=== PATIENT | female | born 1945 | race Caucasian/White ===

== ENCOUNTER 2020-09-19 15:10 | Outpatient (CLI) | payer MEDICARE | END 2020-09-19 15:11 | disposition home or self-care (01) | LOC: CSHULT 15:10 | PROVIDERS: ATTEND Family Medicine | DX: R22.1 Localized swelling, mass and lump, neck (principal) | CPT/HCPCS: 76536 ==

== ENCOUNTER 2021-12-09 07:33 | Outpatient (CLI) | payer MEDICARE | END 2021-12-09 07:34 | disposition home or self-care (01) | LOC: CSHCT 07:33 | PROVIDERS: ATTEND Physician Assistant Medical | DX: K21.9 Gastro-esophageal reflux disease without esophagitis (principal); R11.2 Nausea with vomiting, unspecified; R19.4 Change in bowel habit; R10.32 Left lower quadrant pain; R10.31 Right lower quadrant pain | CPT/HCPCS: 74177; 82565 ==

== ENCOUNTER 2022-12-30 10:44 | Inpatient (IN) | payer MEDICARE ==
[2022-12-30 11:36] LABS: #Basophils 0.1 10x3/uL (0.0-0.2); #Monocytes 0.9 10x3/uL (0.0-1.1); #Neutrophils 4.4 10x3/uL (1.5-8.4); %Basophils 0.9 % (0.0-2.0); %Eosinophils 0.5 % (0.0-6.0); %Lymphocytes 24.1 % (18.0-47.0); %Monocytes 12.4 % (0.0-10.0); %Neutrophils 58.5 % (40.0-75.0); Hemoglobin 12.5 g/dL (12.0-15.5); Mean Corpuscular Hemoglobin 32.1 pg (27.0-33.0); Mean Platelet Volume 9.2 fl (7.4-10.4); Platelet Count 349 10x3/uL (150-450); RBC Distribution Width 12.2 % (11.5-14.5); White Blood Cell (WBC) Count 7.4 10x3/uL (3.5-10.5)
[2022-12-30] MEDS ORDERED: Ondansetron PF 4 MG/2 ML Vial ONE (11:39)
[2022-12-30 11:47] LABS: ALT (SGPT) 15 U/L (8-55); AST (SGOT) 23 U/L (5-34); Albumin 4.2 g/dL (3.4-4.8); Alkaline Phosphatase 88 U/L (40-110); Anion Gap 15 mmol/L (10-20); BUN (Urea Nitrogen) 18 mg/dL (9.8-20.1); Bilirubin, Total 0.4 mg/dL (0.2-1.2); Calc. Creatinine Clearance 0 mL/min (70-130); Calcium 9.2 mg/dL (7.8-10.44); Carbon Dioxide 21 mmol/L (23-31); Chloride 89 mmol/L (98-107); Estimated GFR 32; Globulin 2.6 g/dL (2.4-3.5); Glucose 102 mg/dL (83-110); Magnesium 1.6 mg/dL (1.6-2.6); Potassium 4.6 mmol/L (3.5-5.1); Protein, Total 6.8 g/dL (5.8-8.1); Sodium 120 mmol/L (136-145)
[2022-12-30 13:49] LABS: Anion Gap 14 mmol/L (10-20); BUN (Urea Nitrogen) 18 mg/dL (9.8-20.1); Calc. Creatinine Clearance 0 mL/min (70-130); Calcium 8.7 mg/dL (7.8-10.44); Carbon Dioxide 19 mmol/L (23-31); Chloride 92 mmol/L (98-107); Estimated GFR 35; Glucose 96 mg/dL (83-110); Potassium 4.4 mmol/L (3.5-5.1); Sodium 121 mmol/L (136-145)
[2022-12-30] MEDS ORDERED: Senokot S 8.6-50 MG TAB PO PRN (16:23)
[2022-12-30] MEDS ORDERED: Acetaminophen 325 MG TAB PO PRN (16:23)
[2022-12-30] MEDS ORDERED: traMADol HCl 50 MG TAB PO PRN (16:26)
[2022-12-30] MEDS ORDERED: ALPRAZolam 0.25 MG TAB PO PRN (16:26)
[2022-12-30] MEDS ORDERED: Estradiol 0.01% Vaginal Cream 42.5 gm Tube VAG SCH (16:30)
[2022-12-30 17:19] VITALS: BMI 25.8
[2022-12-30] MEDS: busPIRone HCl 5 MG TAB PO SCH (22:18)
[2022-12-30] MEDS: Simvastatin 10 MG TAB PO SCH (22:18)
[2022-12-30] MEDS: Famotidine/PF 20 mg/2ml Vial SLOW IVP SCH (22:18)
[2022-12-30] MEDS: Heparin 5,000 UNITS/ML VIAL SC SCH (22:19)
[2022-12-30] MEDS: Carvedilol 6.25 MG TAB PO SCH (22:19)
[2022-12-30] MEDS ORDERED: Sodium Chloride 0.9% 1,000 ML IV SCH (23:59)
[2022-12-31 04:28] LABS: #Basophils 0.1 10x3/uL (0.0-0.2); #Eosinphils 0.1 10x3/uL (0.0-0.5); #Monocytes 0.9 10x3/uL (0.0-1.1); #Neutrophils 5.3 10x3/uL (1.5-8.4); %Basophils 0.9 % (0.0-2.0); %Eosinophils 1.2 % (0.0-6.0); %Lymphocytes 26.5 % (18.0-47.0); %Monocytes 10.3 % (0.0-10.0); %Neutrophils 58.3 % (40.0-75.0); Hemoglobin 12.2 g/dL (12.0-15.5); Mean Corpuscular HGB CONC 35.6 g/dL (32.0-36.0); Mean Corpuscular Hemoglobin 31.9 pg (27.0-33.0); Mean Corpuscular Volume 89.8 fl (81.6-98.3); Mean Platelet Volume 9.8 fl (7.4-10.4); Platelet Count 308 10x3/uL (150-450); RBC Distribution Width 12.3 % (11.5-14.5); Red Blood Cell (RBC) Count 3.82 10x6/uL (3.90-5.03); White Blood Cell (WBC) Count 9.1 10x3/uL (3.5-10.5)
[2022-12-31 04:43] LABS: ALT (SGPT) 15 U/L (8-55); AST (SGOT) 22 U/L (5-34); Alkaline Phosphatase 84 U/L (40-110); Anion Gap 13 mmol/L (10-20); BUN (Urea Nitrogen) 15 mg/dL (9.8-20.1); Bilirubin, Total 0.4 mg/dL (0.2-1.2); Calc. Creatinine Clearance 41 mL/min (70-130); Calcium 8.9 mg/dL (7.8-10.44); Carbon Dioxide 20 mmol/L (23-31); Chloride 97 mmol/L (98-107); Estimated GFR 40; Globulin 2.4 g/dL (2.4-3.5); Glucose 92 mg/dL (83-110); Potassium 4.5 mmol/L (3.5-5.1); Protein, Total 6.4 g/dL (5.8-8.1); Sodium 125 mmol/L (136-145)
[2022-12-31] MEDS ORDERED: Cetirizine HCl 10 MG TAB PO SCH (09:00)
[2022-12-31] MEDS: busPIRone HCl 5 MG TAB PO SCH ×3 (09:56→22:01)
[2022-12-31] MEDS: Heparin 5,000 UNITS/ML VIAL SC SCH ×3 (09:57→22:02)
[2022-12-31] MEDS: Losartan Potassium 50 MG TAB PO SCH (09:57)
[2022-12-31] MEDS: Carvedilol 6.25 MG TAB PO SCH ×2 (09:58→22:01)
[2022-12-31] MEDS: Loratadine 10 MG TAB PO SCH (10:00)
[2022-12-31] MEDS: Ondansetron ODT 4 MG TAB PO PRN (11:58)
[2022-12-31 16:52] LABS: ALT (SGPT) 15 U/L (8-55); AST (SGOT) 26 U/L (5-34); Albumin 3.9 g/dL (3.4-4.8); Alkaline Phosphatase 77 U/L (40-110); Anion Gap 14 mmol/L (10-20); BUN (Urea Nitrogen) 13 mg/dL (9.8-20.1); Bilirubin, Total 0.3 mg/dL (0.2-1.2); Calc. Creatinine Clearance 44 mL/min (70-130); Calcium 9.2 mg/dL (7.8-10.44); Carbon Dioxide 20 mmol/L (23-31); Chloride 99 mmol/L (98-107); Estimated GFR 43; Globulin 2.9 g/dL (2.4-3.5); Glucose 107 mg/dL (83-110); Protein, Total 6.8 g/dL (5.8-8.1); Sodium 128 mmol/L (136-145)
[2022-12-31] MEDS: Simvastatin 10 MG TAB PO SCH (22:01)
[2022-12-31] MEDS: Famotidine/PF 20 mg/2ml Vial SLOW IVP SCH (22:02)
[2023-01-01 08:37] VITALS: BP 155/71; TEMP 97.7
[2023-01-01] MEDS: busPIRone HCl 5 MG TAB PO SCH (08:39)
[2023-01-01] MEDS: Losartan Potassium 50 MG TAB PO SCH (08:39)
[2023-01-01] MEDS: Heparin 5,000 UNITS/ML VIAL SC SCH (08:39)
[2023-01-01] MEDS: Carvedilol 6.25 MG TAB PO SCH (08:44)
[2023-01-01] MEDS: Loratadine 10 MG TAB PO SCH (08:45)
[2023-01-01 08:53] LABS: Anion Gap 14 mmol/L (10-20); BUN (Urea Nitrogen) 10 mg/dL (9.8-20.1); Calc. Creatinine Clearance 51 mL/min (70-130); Calcium 8.3 mg/dL (7.8-10.44); Carbon Dioxide 18 mmol/L (23-31); Chloride 106 mmol/L (98-107); Estimated GFR 52; Glucose 94 mg/dL (83-110); Potassium 3.9 mmol/L (3.5-5.1); Sodium 134 mmol/L (136-145)
[2023-01-01 08:58] LABS: Magnesium 1.5 mg/dL (1.6-2.6)
[2023-01-01] MEDS: Ondansetron ODT 4 MG TAB PO PRN (10:31)
== END 2023-01-01 11:10 | disposition home or self-care (01) | DRG 641 ==
LOC: CSHERS 10:44 → CSHTELE 16:27 → OBSVTOIN 12-31 10:57
PROVIDERS: ADMIT Family Medicine; ATTEND Family Medicine
DX: E87.1 Hypo-osmolality and hyponatremia (principal); N17.9 Acute kidney failure, unspecified; K21.9 Gastro-esophageal reflux disease without esophagitis; I10 Essential (primary) hypertension; E78.5 Hyperlipidemia, unspecified; F41.9 Anxiety disorder, unspecified; F32.A Depression, unspecified; E86.0 Dehydration; T36.8X5A Adverse effect of other systemic antibiotics, initial encounter; T50.0X5A Adverse effect of mineralocorticoids and their antagonists, initial encounter; Z79.899 Other long term (current) drug therapy; Z90.49 Acquired absence of other specified parts of digestive tract; Z90.710 Acquired absence of both cervix and uterus; Z98.890 Other specified postprocedural states; Z88.1 Allergy status to other antibiotic agents
CPT/HCPCS: 36415; 80048; 80053; 83735; 85025; 96361; 96372; 96374; 96375; 96376; G0378; J0744; J1644; J2405; J7050; Q0162; S0028

== ENCOUNTER 2024-05-11 13:24 | Outpatient (CLI) | payer MEDICARE | END 2024-05-11 13:25 | disposition home or self-care (01) | LOC: CSHMRI 13:24 | PROVIDERS: ATTEND Nurse Practitioner Family | DX: M47.816 Spondylosis without myelopathy or radiculopathy, lumbar region (principal); M51.369 Other intervertebral disc degeneration, lumbar region without mention of lumbar back pain or lower extremity pain | CPT/HCPCS: 72148 ==